=== PATIENT | female | born 1960 | race Caucasian/White ===

== ENCOUNTER 2020-01-13 01:16 | Day surgery (SDC) | payer MEDICARE, MEDICAID, SELFPAY ==
[2020-01-12 15:31] VITALS: BMI 18.6
--- NOTE | 2020-01-13 09:43 | WPDANESEPPF ---
Anes - Initial Pre Proc Eval Procedure: Operation Date: 01/13/20 12:00 Proposed Procedures p Esophagogastroduodenoscopy - Mason Guzman MD Date/Time: 01/13/20 09:43 Surgeon: Mason Guzman MD Pre Op Diagnosis: Dysphagia Patient Data Age: 59 Gender: F Height: 5 ft 7 in Weight: 54 kg Allergies Allergy/AdvReac Type Severity Reaction Status Date / Time No Known Allergies Allergy Verified 01/13/20 11:05 Home Medications Medication Instructions Recorded Confirmed Type ascorbic acid (vitamin C) 500 mg 500 mg PO DAILY 01/12/20 01/13/20 History capsule aspirin [Aspir-81] 81 mg PO DAILY 01/12/20 01/13/20 History atorvastatin 10 mg tablet 10 mg PO DAILY 01/12/20 01/13/20 History ergocalciferol (vitamin D2) 2,500 2,500 unit PO .COMPLEX 01/12/20 01/13/20 History unit capsule escitalopram oxalate 10 mg tablet 10 mg PO DAILY 01/12/20 01/13/20 History levothyroxine 112 mcg tablet 112 mcg PO DAILY #30 tablet 01/12/20 01/13/20 Rx multivitamin with iron-mineral 1 tablet PO DAILY 01/12/20 01/13/20 History ranitidine HCl 300 mg tablet 300 mg PO DAILY 01/12/20 01/13/20 History spironolactone 25 1 tablet PO DAILY #60 tablet 01/12/20 01/13/20 Rx mg-hydrochlorothiazide 25 mg tablet Patient hx anesthesia problems: none Family hx anesthesia problems: none PMFSH Past Medical History Medical History (Updated 01/12/20 @ 15:07 by Mason Guzman MD) Adenomatous colon polyp Arthritis Constipation Dysphagia High cholesterol Hypertension Thyroid disease Weight loss Family History Family History (Updated 01/12/20 @ 14:48 by Rodney Elam) Father Cancer Mother Diabetes mellitus Sibling Diabetes mellitus Social History Social History (Updated 01/12/20 @ 14:47 by Rodney Elma) Smoking status: Current every day smoker Tobacco type: cigarettes Alcohol intake: never Anes - Eval Final PreProcedure Day of Procedure 01/13/20 09:43 Patient weight: normal Heart: regular rate and rhythm Lungs: clear to auscultation Airway: Mallampati scale class II Neurological: alert and oriented Last oral intake: >/= 8 hours ASA classification: III Emergent: no Anesthetic plan: proceed Anesthesia type and monitoring: general GIVS and standard monitoring Informed Consent: The patient's anesthetic plan and its attendant risks and benefits were discussed with the patient/family/POA. Questions were solicited and answers provided to the satisfaction of the patient/family/POA.
[2020-01-13 11:09] VITALS: BP 133/72; PULSE 62; RESP 20; TEMP 36.6; O2SAT 98; BMI 18.6
[2020-01-13] MEDS: LACTATED RINGERS 1,000 ML 150 ML IV CONT (11:22)
--- NOTE | 2020-01-13 12:05 | WPDHPUPDATE1 ---
History and Physical Update Update Date/Time: 01/13/20 12:05 History and Physical has been reviewed, including an updated exam of the patient. There are NO changes in the patient's condition. Risks, benefits, and alternatives have been discussed and questions answered. Patient agrees to proceed with procedure.
[2020-01-13 12:08] VITALS: BP 110/58; BP 117/67; PULSE 61; PULSE 63; RESP 18; RESP 19; O2SAT 100
[2020-01-13 12:18] VITALS: BP 117/67; PULSE 61; RESP 19; O2SAT 100
[2020-01-13 12:28] VITALS: BP 128/65; PULSE 66; RESP 18; O2SAT 100
[2020-01-13 12:38] VITALS: BP 129/72; PULSE 69; RESP 19; O2SAT 100
== END 2020-01-13 12:52 | disposition home or self-care (01) ==
PROVIDERS: PCP Internal Medicine; Visit Provider Internal Medicine Gastroenterology
PROC: 0DJ08ZZ Inspection of Upper Intestinal Tract, Via Natural or Artificial Opening Endoscopic (ICD-10-PCS; CPT 43235; principal; 2020-01-13 12:00)
DX: R13.10 Dysphagia, unspecified (principal); K44.9 Diaphragmatic hernia without obstruction or gangrene; K29.50 Unspecified chronic gastritis without bleeding; R63.4 Abnormal weight loss; I10 Essential (primary) hypertension; E07.9 Disorder of thyroid, unspecified; K59.00 Constipation, unspecified; E78.00 Pure hypercholesterolemia, unspecified; M19.90 Unspecified osteoarthritis, unspecified site; Z79.82 Long term (current) use of aspirin; F17.210 Nicotine dependence, cigarettes, uncomplicated
CPT/HCPCS: 43239; 43248; 88305; J2704; J7120

== ENCOUNTER 2020-05-25 16:46 | Emergency (ER) | payer MEDICARE, MEDICAID, SELFPAY ==
--- NOTE | ~2020-05-25 | CT_ITS ---
EXAMINATION: CT brain wo con INDICATION: Head injury COMPARISON: 02/07/2019 TECHNIQUE: Standard unenhanced head CT. The dose-length product (DLP) was 605.33 mGy-cm. The mA was a djusted according to patient size. Iterative reconstruction technique was employed. FINDINGS: There is a left frontal scalp hematoma. There is no acute intraparenchymal hemorrhage. No e vidence of mass lesion. No evidence of acute infarction. There is mild periventricular and subcortica l hypodensity probably related to small vessel ischemic disease. There is mild prominence of the sulc i and ventricles related to cerebral atrophy. Intracranial calcified cerebral atherosclerosis is note d. There are no extra-axial collections. There is no mass effect or midline shift. The orbits and sof t tissues are unremarkable. The visualized sinuses and mastoid air cells are well aerated. IMPRESSION: 1. Left frontal scalp hematoma without acute intracranial abnormality. 2. Age related findings. Reviewed, dictated and finalized at location A.
--- NOTE | ~2020-05-25 | XR_ITS ---
EXAMINATION: XR knee LT 3V INDICATION: Left knee pain TECHNIQUE: Four views of the left knee are obtained. COMPARISON: 02/07/2019 FINDINGS: There is no fracture, dislocation, or subluxation. There is mild tricompartmental osteoarth ritis characterized by tiny marginal osteophytes. There is no joint effusion. There are stable sclero tic lesions involving the medial femoral condyle and patella. IMPRESSION: 1. No acute osseous abnormality. 2. Chronic sclerotic lesions in the medial femoral condyle and patella which could reflect prior osse ous injury, bone island, or other osseous neoplasm. Bone scan is recommended. Reviewed, dictated and finalized at location A. IMPRESSION: 1. No acute osseous abnormality. 2. Chronic sclerotic lesions in the medial femoral condyle and patella which co uld reflect prior osseous injury, bone island, or other osseous neoplasm. Bone scan is recommended.
--- NOTE | ~2020-05-25 | CT_ITS ---
EXAMINATION: CT cervical spine wo con DATE: 05/25/2020 17:57 INDICATION: Neck pain TECHNIQUE: Computed tomography (CT) of the cervical spine was performed without intravenous contrast. The dose-length product (DLP) was 121.34 mGy-cm. Automated exposure control and iterative reconstruc tion technique were employed. COMPARISON: None FINDINGS: There is no fracture, dislocation, or subluxation. The vertebral body heights and intervert ebral disc spaces are normal. The odontoid is intact. The prevertebral soft tissues are normal. There is mild to moderate multilevel facet osteoarthritis. Incidental note is made of moderate severe oste oarthritis of the temporomandibular joints. IMPRESSION: 1. Mild cervical spondylosis without acute findings. Reviewed, dictated and finalized at location A.
--- NOTE | ~2020-05-25 | XR_ITS ---
EXAMINATION: XR scapula LT INDICATION: Left scapular pain TECHNIQUE: Two views of the left scapula are obtained. COMPARISON: 02/07/2019 FINDINGS: There is no fracture, dislocation, or subluxation. The bones, soft tissues, and joint space s are normal. IMPRESSION: 1. No acute osseous abnormality. Reviewed, dictated and finalized at location A.
--- NOTE | ~2020-05-25 | XR_ITS ---
EXAMINATION: XR elbow LT min 3V DATE: 05/25/2020 17:56 INDICATION: Left elbow pain TECHNIQUE: Anteroposterior, two oblique and lateral views of the left elbow were obtained. COMPARISON: None. FINDINGS: Alignment is normal. No fracture or joint effusion. Joint spaces are normal. Soft tissues a re unremarkable. IMPRESSION: 1. No acute osseous abnormality. Reviewed, dictated and finalized at location A.
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
[2020-05-25 16:58] VITALS: BP 146/74; PULSE 82; RESP 14; TEMP 36.7; O2SAT 100
[2020-05-25 17:09] LABS: Basophils Absolute Auto 0.04 K/mm3 (0.00-0.10); Basophils Percent Auto 0.4 % (0.0-1.0); Eosinophils Absolute Auto 0.12 K/mm3 (0.02-0.50); Eosinophils Percent Auto 1.3 % (1.0-6.0); Hematocrit 37.7 % (35.0-49.0); Hemoglobin 12.3 g/dL (12.0-15.0); Immature Granulocyte Absolute 0.01 K/mm3 (0.00-0.00); Immature Granulocyte Percent A 0.1 % (0.0-0.0); Lymphocytes Absolute Auto 1.95 K/mm3 (1.10-4.50); Lymphocytes Percent Auto 21.8 % (18.0-42.0); Mean Corpuscular HGB Conc 32.6 g/dL (32.0-36.0); Mean Corpuscular Hemoglobin 29.6 pg (27.0-31.0); Mean Corpuscular Volume 90.6 fL (78.0-102.0); Mean Platelet Volume 9.6 fl (9.2-11.8); Monocytes Absolute Auto 0.44 K/mm3 (0.10-0.90); Monocytes Percent Auto 4.9 % (2.0-11.0); Neutrophils Absolute Auto 6.4 K/mm3 (1.7-7.2); Neutrophils Percent Auto 71.5 % (50.0-70.0); Platelet Count Result 290 K/mm3 (150-420); Red Blood Count 4.16 M/mm3 (4.20-5.40); Red Cell Distribution Width 13.3 % (11.6-14.4)
[2020-05-25 17:22] LABS: Prothrombin Time 10.3 Seconds (9.64-11.0)
[2020-05-25 17:24] LABS: Alanine Aminotransferase 12 U/L (14-59); Albumin Level 3.3 g/dL (3.4-5.0); Alkaline Phosphatase 73 U/L (46-116); Anion Gap 10.5 mmol/L (7-16); Aspartate Amino Transferase 11 U/L (15-37); Bilirubin,Total 0.2 mg/dL (0.00-1.00); Blood Urea Nitrogen 25 mg/dL (7-18); Calcium 8.2 mg/dL (8.5-10.1); Carbon Dioxide 29 mmol/L (21-32); Chloride 108 mmol/L (98-108); Estimated CRCL calculation 60 ml/min; Estimated Glomerular Filt Rate > 60; Glucose 100 mg/dL (70-99); Osmolality Calculated 302 mOsm/kg (285-295); Potassium 3.5 mmol/L (3.5-5.1); Sodium 144 mmol/L (136-145); Total Protein 6.1 g/dL (6.4-8.2)
[2020-05-25 18:25] LABS: Add Urine Microscopic? YES; Appearance Urine Clear (Clear); Bilirubin Urine Negative (Negative); Blood Urine Negative (Negative); Color Urine Yellow (Yellow); Glucose Urine UA Negative (Negative); Ketones Urine Negative (Negative); Leukocyte Esterase Ur Negative (Negative); Nitrate Urine Negative (Negative); Protein Urine 1+ (Negative); Specific Grav Ur >= 1.030 (1.010-1.020)
[2020-05-25 18:26] LABS: RBC Urine 0-2 /hpf (0-2); WBC Urine 0-3 /hpf (0-3)
[2020-05-25 18:27] LABS: Bacteria Urine 1+ /hpf; Squamous Epithelial Cell Urine Many /hpf (Few)
[2020-05-25 18:36] VITALS: BP 123/73; PULSE 82; RESP 18; TEMP 36.4; O2SAT 99
== END 2020-05-25 18:43 | disposition home or self-care (01) ==
PROVIDERS: Emergency Provider Emergency Medicine
DX: S09.90XA Unspecified injury of head, initial encounter (principal); S16.1XXA Strain of muscle, fascia and tendon at neck level, initial encounter; T14.8XXA Other injury of unspecified body region, initial encounter; F17.200 Nicotine dependence, unspecified, uncomplicated; Y04.0XXA Assault by unarmed brawl or fight, initial encounter
CPT/HCPCS: 36415; 70450; 72125; 73010; 73080; 73562; 80053; 81001; 85025; 85610; 85730; 99283; 99284; L0150

== ENCOUNTER 2022-06-14 03:03 | Emergency (ER) | payer MEDICARE, MEDICAID, SELFPAY ==
[2022-06-14 03:05] VITALS: BP 110/60; PULSE 78; RESP 20; TEMP 37; O2SAT 95
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
--- NOTE | 2022-06-14 03:27 | PC.NURSE ---
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 TOLERATED WELL. PULSES GOOD POST PROCEDURE
[2022-06-14] MEDS: HYDROcodone/acetaminophen (*CRX) 5-325 MG TABLET 1 TAB PO (03:31)
[2022-06-14 03:42] VITALS: BP 108/70; PULSE 78; RESP 20; TEMP 36.1; O2SAT 95
== END 2022-06-14 03:43 | disposition home or self-care (01) ==
PROVIDERS: Emergency Provider Internal Medicine Critical Care Medicine; PCP Internal Medicine
DX: S61.216A Laceration without foreign body of right little finger without damage to nail, initial encounter (principal); W45.8XXA Other foreign body or object entering through skin, initial encounter
CPT/HCPCS: 12002; 99283; A9270

== ENCOUNTER 2022-10-17 15:06 | Emergency (ER) | payer MEDICARE, MEDICAID, SELFPAY ==
--- NOTE | ~2022-10-17 | CT_ITS ---
EXAMINATION: CT lumbar spine wo con DATE: 10/17/2022 15:40 INDICATION: low back pain . TECHNIQUE: Computed tomography (CT) of the lumbar spine was performed without intravenous contrast. A utomated exposure control and iterative reconstruction technique were employed. The dose-length produ ct was 189.57 mGy-cm. COMPARISON: None. FINDINGS: Left iliac vein stent extending into the inferior IVC. Atherosclerotic arterial calcificati on. Nonobstructing left midpole renal calculus. 5 nonrib-bearing lumbar-type vertebral bodies. Pedicl es intact. Normal vertebral body alignment. Vertebral body heights preserved. Large Schmorl's node in the superior endplate of L4. Multilevel mild disc space narrowing and marginal osteophytosis. 6 mm c entral disc protrusion at L1-2 causing mild central canal stenosis Multilevel mild facet arthropathy. IMPRESSION: No acute fracture or traumatic malalignment in the lumbar spine. Multilevel mild degenerative disc di sease, including a 6 mm central disc protrusion at L1-2. No severe neural foraminal or central canal narrowing. Multilevel mild facet arthropathy. Reviewed, dictated and finalized at location K. [employer] IMPRESSION: No acute fracture or traumatic malalignment in the lumbar spine. Multilevel mil d degenerative disc disease, including a 6 mm central disc protrusion at L1-2. No severe neural foraminal or central canal narrowing. Multilevel mild facet ar thropathy.
--- NOTE | 2022-10-17 15:08 | ED.BACK ---
HPI - Back Pain/Injury General Chief Complaint: Back Pain/Injury Stated Complaint: ambulance Time Seen by Provider: 10/17/22 15:08 Source: patient Mode of arrival: ambulatory Limitations: no limitations History of Present Illness HPI Narrative: [age] old female with a history of hypertension, adenomatous polyps, peripheral vascular disease status post vascular stent, leg ulcer, prolonged QT arthritis presents to the a 2 day history -- low. No radiation of the pain. No fever. No bladder or bowel involvement. No paresthesias of lower extremities. MD elicited complaint: back pain Pertinent past history: prior back pain ( No prior history of low back.) Onset (ago): day(s) ( Two days) Timing: constant Severity: moderate Similar Symptoms Previously: Yes Quality: aching Location: lumbar spine Radiation: none Exacerbating factors: movement Relieving factors: immobilization Context: other ( pain came on after taking laxatives with multiple bathroom visits) Associated symptoms: denies other symptoms Work related injury: No Related Data Home Medications Medication Instructions Recorded Confirmed ascorbic acid (vitamin C) 500 mg 500 mg PO DAILY 01/12/20 10/17/22 capsule aspirin 81 mg tablet,delayed 81 mg PO DAILY 01/12/20 10/17/22 release (Aspir-) atorvastatin 10 mg tablet 10 mg PO DAILY 01/12/20 10/17/22 ergocalciferol (vitamin D2) 62.5 2,500 unit PO .COMPLEX 01/12/20 10/17/22 mcg (2,500 unit) capsule escitalopram oxalate 10 mg tablet 10 mg PO DAILY 01/12/20 10/17/22 multivitamin with iron-mineral 1 tablet PO DAILY 01/12/20 10/17/22 ranitidine HCl 300 mg tablet 300 mg PO DAILY 01/12/20 10/17/22 levothyroxine 112 mcg tablet 100 mcg PO DAILY 05/25/20 10/17/22 Allergies Allergy/AdvReac Type Severity Reaction Status Date / Time No Known Allergies Allergy Verified 10/17/22 15:14 Review of Systems Review of Systems: All systems reviewed & are unremarkable except as noted in HPI and below Constitutional: Constitutional: Reports as per HPI and Reports no additional constitutional complaints Eyes: Eyes: Reports as per HPI and Reports no additional eye complaints ENT: Reports system reviewed and no additional complaints, except as documented and Reports as per HPI Cardiovascular: Cardiovascular: Reports as per HPI Respiratory: Respiratory: Reports as per HPI and Reports no additional respiratory complaints Gastrointestinal: Gastrointestinal: Reports as per HPI and Reports no additional gastrointestinal complaints Genitourinary: Genitourinary: Reports no additional female genitourinary complaints and Reports as per HPI Musculoskeletal: Musculoskeletal: Reports no additional musculoskeletal complaints, Reports as per HPI and Reports back pain Integumentary/Breasts: Skin/Breast: Reports system reviewed and no additional complaints, except as docu and Reports as per HPI Neurologic: Reports system reviewed and no additional complaints, except as documented and Reports as per HPI Psychiatric: Psychiatric: Reports no additional psychiatric complaints and Reports as per HPI Endocrine: Endocrine: Reports no additional endocrine complaints and Reports as per HPI Hematologic/Lymphatic: Hematologic/Lymphatic: Reports no additional hematologic/lymphatic complaints and Reports as per HPI Allergic/Immunologic: Allergic/Immunologic: Reports no additional allergic/immunologic complaints and Reports as per HPI PMFSH Past Medical History Medical History (Updated 10/17/22 @ 16:34 by Viktor Saavedra MD) Adenomatous colon polyp Arthritis Constipation Dysphagia High cholesterol Hypertension Leg ulcer, left Peripheral artery disease Prolonged QT interval Thyroid disease Weight loss Surgical History Surgical History History of S/P peripheral artery angioplasty with stent placement left iliac times due Family History Family History (Reviewed
[2022-10-17 15:10] VITALS: BP 118/64; PULSE 67; RESP 22; TEMP 36.3; O2SAT 100
[2022-10-17] MEDS: KETOROLAC 30 MG/ML VIAL (*BKC) IV PUSH (15:26)
--- NOTE | 2022-10-17 15:26 | PC.NURSE ---
pt in ct at this time
[2022-10-17 16:06] VITALS: BP 116/60; PULSE 62; RESP 16; O2SAT 100
== END 2022-10-17 16:47 | disposition home or self-care (01) ==
PROVIDERS: Emergency Provider Internal Medicine Critical Care Medicine; PCP Internal Medicine
DX: M51.36 Other intervertebral disc degeneration, lumbar region (principal); M51.26 Other intervertebral disc displacement, lumbar region; E78.00 Pure hypercholesterolemia, unspecified; F17.200 Nicotine dependence, unspecified, uncomplicated
CPT/HCPCS: 72131; 96374; 99284; J1885

== ENCOUNTER 2023-04-10 13:12 | Outpatient (CLI) | payer MEDICARE, MEDICAID, SELFPAY ==
--- NOTE | ~2023-04-10 | DEXA_ITS ---
Bone Density Report Name: BLANCA BARNES Age: 62 Sex: Female Ethnicity: White Date of : 1960 Indication: hyperparathyroidism; history of glucocorticoids; prior fracture; hysterectomy; rheumatoid arthritis; Referring Provider: AKNAKSHA, BENJI Crawford Study: Bone densitometry was performed. Exam Date: April 10, 2023 Accession number: [id number] Bone Density: Region BMD T-score Z-score Classification AP Spine(L1-L4) 0.815 -2.1 -0.5 Osteopenia Femoral Neck (Left) 0.467 -3.4 -2.0 Osteoporosis Total Hip (Left) 0.584 -2.9 -1.8 Osteoporosis Femoral Neck (Right) 0.519 -3.0 -1.6 Osteoporosis Total Hip (Right) 0.600 -2.8 -1.7 Osteoporosis Femoral Neck Mean 0.493 -3.2 -1.8 Osteoporosis Total Hip Mean 0.592 -2.9 -1.8 Osteoporosis World Health Organization criteria for BMD impression classify patients as: Normal (T-score at or above -1.0), Osteopenia (T-score between -1.0 and -2.5), or Osteoporosis (T-score at or below -2.5). 10-year Fracture Risk: FRAX not reported because: Some T-score for Spine Total or Hip Total or Femoral Neck at or below -2.5 Clinical Information Provided by Patient: Has had a low trauma fracture Smokes Has taken Glucocorticoids Has rheumatoid arthritis Has used the following medications: Calcium Has the following medical conditions: Hyperparathyroidism, Hysterectomy Patient maximum height was 57 Menopause Age: 45 No regular weight bearing exercise Does not regularly consume dairy products Drinks caffeinated beverages Onset of menses at age 13 Number of children 4 Impression: The patient has established osteoporosis, based on the Left Femoral Neck T-score and the existence of a prior fracture. The patient has risk factors, including: smoking, previous fracture, history of glucocorticoid therapy. Discussion: HIGH RISK OF FRACTURE. BONE DENSITY IS UNDESIRABLY LOW AT ONE OR MORE SKELETAL SITES, CONSISTENT WITH POSTMENOPAUSAL OSTEOPOROSIS. This patient's lowest T-score, in a patient who has previously fractured, meets the World Health Organization's (WHO) criteria for severe osteoporosis. In untreated patients, the risk of osteoporotic fracture increases approximately two-fold for each 1.0 SD decrease in T-score. Low bone density is not the only risk factor for fracture; also consider factors such as patient's age, frailty or poor health, risk of falling, risk of injury, previous osteoporotic fracture, family history of osteoporosis, cigarette smoking, low body weight, etc. Not everyone with low bone mineral density has osteoporosis; osteomalacia and other metabolic bone disorders should also be considered. Patients who have osteoporosis should be evaluated for specific diseases and conditions (secondary causes) that may cause or contribute to bone loss. The [employer] Association of Clinical Endocrinologists (AACE) and National Osteoporosis Foundation (NOF
--- NOTE | ~2023-04-10 | CT_ITS ---
EXAMINATION: CT lung screening DATE: 04/10/2023 14:07 INDICATION: CURRENT SMOKER 30+ YR; REVIEW OF LUNG STATUS; NICOTINE DEP TECHNIQUE: Computed tomography (CT) of the chest was performed without intravenous contrast. Addition al 3D reconstructions utilizing coronal maximum intensity projection (MIP) were performed. Automated exposure control and iterative reconstruction technique were employed. The dose-length product was 53 .75 mGy-cm. COMPARISON: None FINDINGS: Mild pleural parenchymal scarring at the bilateral apices with a 5 mm and 6-7 mm more nodular opaciti es at the right apex. There are a few additional scattered 2-3 mm nodules throughout the remainder of the bilateral lungs. No pneumonia, pulmonary edema, pleural effusion or pneumothorax. Heart size is normal. No pericardial effusion. Thoracic aorta is normal in caliber. No pathologically enlarged thor acic lymphadenopathy. 5 mm nonobstructing stone at an upper pole calyx of the left kidney. IMPRESSION: 1. Lung-RADS category 3: Probably benign. Further evaluation is recommended with noncontrast low-dose chest CT in 6 months. Reviewed, dictated and finalized at location A. IMPRESSION: 1. Lung-RADS category 3: Probably benign. Further evaluation is recommended wit h noncontrast low-dose chest CT in 6 months.
--- NOTE | ~2023-04-10 | MM_ITS ---
EXAMINATION: MM screening [facility] BI w yuri HISTORY: Screening mammogram TECHNIQUE: Craniocaudal and mediolateral oblique 3-D tomosynthesis images were obtained and synthetic 2-D images were generated. CAD analysis was submitted and interpreted. COMPARISON: 05/22/2017, 04/09/2016, 03/07/2015 BREAST PARENCHYMAL COMPOSITION: There are scattered areas of fibroglandular density. FINDINGS: No suspicious mass, calcification, or architectural distortion are identified in either davin ast to suggest malignancy. There has been no suspicious interval change. IMPRESSION: 1. No mammographic evidence of malignancy. 2. Recommend routine screening mammography in one year. BI-RADS Category 1: Negative Reviewed, dictated and finalized at location A.
== END 2023-04-10 13:13 | disposition home or self-care (01) ==
LOC: CHSIMG 13:17
PROVIDERS: PCP Family Medicine; Visit Provider Family Medicine
DX: Z12.31 Encounter for screening mammogram for malignant neoplasm of breast (principal); Z78.0 Asymptomatic menopausal state; M85.88 Other specified disorders of bone density and structure, other site; M81.0 Age-related osteoporosis without current pathological fracture; Z12.2 Encounter for screening for malignant neoplasm of respiratory organs; Z87.891 Personal history of nicotine dependence
CPT/HCPCS: 71271; 77063; 77067; 77080

== ENCOUNTER 2024-01-31 15:33 | Outpatient (CLI) | payer MEDICARE, MEDICAID, SELFPAY ==
--- NOTE | ~2024-01-31 | US_ITS ---
EXAMINATION: US venous doppler [facility] DATE: 01/31/2024 16:08 INDICATION: Left lower limb pain TECHNIQUE: Muhammad scale images without and with compression and Doppler images of the left lower extrem ity veins were obtained. COMPARISON: None FINDINGS: The left common femoral vein, profunda femoral vein, femoral vein, popliteal vein, peroneal trunk, posterior tibial veins, and greater saphenous vein are patent. IMPRESSION: 1. Patent left lower extremity veins. No evidence of deep venous thrombosis. Reviewed, dictated and finalized at location B. [employer]
== END 2024-01-31 15:34 | disposition home or self-care (01) ==
DX: M79.89 Other specified soft tissue disorders (principal)
CPT/HCPCS: 93971

== ENCOUNTER 2024-09-09 11:12 | Outpatient (CLI) | payer MEDICARE, MEDICAID, SELFPAY ==
[2024-09-09 11:59] LABS: Alanine Aminotransferase 12 U/L (6-35); Albumin Level 4.6 g/dL (3.5-5.1); Alkaline Phosphatase 74 U/L (38-126); Anion Gap 6 mmol/L (4-12); Aspartate Amino Transferase 22 U/L (14-36); Bilirubin,Total 0.5 mg/dL (0.2-1.3); Blood Urea Nitrogen 17 mg/dL (7-17); Calcium 9.5 mg/dL (8.4-10.2); Carbon Dioxide 31 mmol/L (22-30); Chloride 103 mmol/L (98-107); Cholesterol 213 mg/dL (0-200); Estimated Glomerular Filt Rate > 60; Glucose 111 mg/dL (65-110); HDL Direct 51 mg/dL; Potassium 3.8 mmol/L (3.4-5.0); Sodium 140 mmol/L (137-145); Triglycerides 240 mg/dL (<150)
[2024-09-09 12:10] LABS: LDL Cholesterol Direct 103 mg/dL
[2024-09-09 12:32] LABS: Free T4 Free Thyroxine 1.11 ng/mL (0.78-2.19); Vitamin D 25 Hydroxy 75.7 ng/mL
== END 2024-09-09 11:13 | disposition home or self-care (01) ==
PROVIDERS: PCP Internal Medicine; Visit Provider Internal Medicine
DX: E03.9 Hypothyroidism, unspecified (principal); E78.5 Hyperlipidemia, unspecified; Z79.891 Long term (current) use of opiate analgesic
CPT/HCPCS: 36415; 80053; 80061; 82306; 84439; 84443; 84481

== ENCOUNTER 2024-09-17 15:58 | Outpatient (CLI) | payer MEDICARE, MEDICAID, SELFPAY ==
[2024-09-17 18:02] LABS: Hemoglobin A1C 6.2 % (<5.7)
== END 2024-09-17 15:59 | disposition home or self-care (01) ==
PROVIDERS: PCP Internal Medicine; Visit Provider Internal Medicine
DX: R73.09 Other abnormal glucose (principal)
CPT/HCPCS: 36415; 83036

== ENCOUNTER 2025-01-05 12:56 | Outpatient (CLI) | payer MEDICARE, MEDICAID, SELFPAY ==
--- NOTE | ~2025-01-05 | MM_ITS ---
EXAMINATION: MM screening yohannes BI w yuri HISTORY: Screening TECHNIQUE: Craniocaudal and mediolateral oblique 3-D tomosynthesis images were obtained and synthetic 2-D images were generated. CAD analysis was submitted and interpreted. COMPARISON: Comparison to multiple prior studies sequentially, with oldest reviewed study dated 03/07. BREAST PARENCHYMAL COMPOSITION: Not dense: There are scattered areas of fibroglandular density. FINDINGS: There is no evidence of suspicious mass, calcification, or architectural distortion to sugg est malignancy in either breast. There has been no suspicious interval change. IMPRESSION: 1. No mammographic evidence of malignancy. 2. Recommend routine screening mammography in one year. BI-RADS Category 1: Negative Reviewed, dictated and finalized at location B. D WELFARE CONSULTANT
--- NOTE | ~2025-01-05 | DEXA_ITS ---
Bone Density Report Name: BLANCA BARNES Age: 64 Sex: Female Ethnicity: White Date of : 1960 Indication: postmenopausal osteoporosis; monitoring treatment; hyperparathyroidism; height loss; inflammatory bowel disease; prior fracture; hysterectomy; rheumatoid arthritis; Referring Provider: AMY, JESÚS Archuleta Study: Bone densitometry was performed. Exam Date: January 05, 2025 Accession number: [id number] Bone Density: Region BMD T-score Z-score Classification AP Spine(L1-L4) 0.900 -1.3 0.4 Osteopenia Femoral Neck (Left) 0.538 -2.8 -1.3 Osteoporosis Total Hip (Left) 0.649 -2.4 -1.2 Osteopenia Femoral Neck (Right) 0.558 -2.6 -1.2 Osteoporosis Total Hip (Right) 0.624 -2.6 -1.4 Osteoporosis Femoral Neck Mean 0.548 -2.7 -1.2 Osteoporosis Total Hip Mean 0.636 -2.5 -1.3 Osteoporosis World Health Organization criteria for BMD impression classify patients as: Normal (T-score at or above -1.0), Osteopenia (T-score between -1.0 and -2.5), or Osteoporosis (T-score at or below -2.5). 10-year Fracture Risk: FRAX not reported because: Some T-score for Spine Total or Hip Total or Femoral Neck at or below -2.5 Treated for osteoporosis Previous Exams: Region Exam Age BMD T-score BMD Change BMD Change Date g/cm2 vs Baseline vs Previous AP Spine (L1-L4) 01/05/2025 64 0.900 -1.3 0.085 (10.5%)* 0.085 (10.5%)* 04/10/2023 62 0.815 -2.1 Total Hip(Left) 01/05/2025 64 0.649 -2.4 0.064 (11.0%)* 0.064 (11.0%)* 04/10/2023 62 0.584 -2.9 Total Hip(Right) 01/05/2025 64 0.624 -2.6 0.024 (4.0%) 0.024 (4.0%) 04/10/2023 62 0.600 -2.8 *Denotes significance at 95% confidence level, LSC for AP Spine = 0.022 g/cm2, LSC for Total Hip = 0.027 g/cm2 Clinical Information Provided by Patient: Has had a low trauma fracture Smokes Has rheumatoid arthritis Is being treated for osteoporosis Has used the following medications: Vitamin D, Calcium, multi Has the following medical conditions: Inflammatory bowel diseases, Hyperparathyroidism, Hysterectomy Patient maximum height was 67. Menopause Age: 45 Does not regularly consume dairy products Drinks caffeinated beverages Onset of menses at age 13 Number of children 3 Impression: The patient has established osteoporosis, based on the Left Femoral Neck T-score and the existence of a prior fracture. The patient has risk factors, including: smoking, previous fracture. No significant bone loss was observed. Discussion: PATIENT UNDER TREATMENT WITH NO SIGNIFICANT BMD LOSS SINCE LAST EXAM. In an untreated patient, BMD typically declines with age. A lack of decline or gain is usually a sign that treatment is efficacious and fracture risk is reduced. It is important to ask patients whether they are taking their medications and to encourage continued and appropriate compliance with their osteoporosis therapies to reduce fracture risk. It is also important to review their risk factors and encourage appropriate calcium and vitamin D intakes, exercise, fall prevention and other lifestyle measures. Follow-Up: Consider a repeat BMD and Vertebral Fracture Assessment (VFA) exam in 2 years or sooner if medically necessary, to reassess this patient's status. Reported by: ANNA MARIE on 01/05/2025 1:33:00 PM. Reviewed, dictated and finalized at location A.
--- NOTE | ~2025-01-05 | CT_ITS ---
EXAMINATION:CT lung screening DATE: 01/05/2025 13:37 INDICATION: Tobacco use. TECHNIQUE: Computed tomography (CT) of the chest was performed without intravenous contrast. Automate d exposure control and iterative reconstruction technique were employed. The dose-length product (DLP ) was 65.11 mGy-cm. COMPARISON: Chest CT 04/10/2023 FINDINGS: There is mild scarring at the lung apices. There are few stable nodules in right upper lobe measuring up to 6 mm. No pleural effusion. The heart size is normal. No pericardial effusion. There is severe thoracic spondylosis. There is mild chronic anterior wedging of multiple vertebral bodies. IMPRESSION: 1. Lung-RADS category 2: Benign appearance or behavior. Continue annual screening with noncontrast lo w-dose chest CT in 12 months. Reviewed, dictated and finalized at location A. CHASER IMPRESSION: 1. Lung-RADS category 2: Benign appearance or behavior. Continue annual screeni ng with noncontrast low-dose chest CT in 12 months.
--- OUTSIDE RECORDS SUMMARY | 2025-01-05 13:44 | XMS_ITS | Data Portability ---
Author Organization 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 Plan of Treatment Reminders Order Date Submit Date Provider Last Modified By Organization Details Last Modified Time Details Appointments Medicare Wellness 15 2024 10:00A M Jon Mcmillan MD Not available Not available Not available Lab vitamin D, 25-hydrox y, total, serum [address] (Lab), [address] [place], [address], 09/16/2024 08:00:32 lipid panel, serum [address] (Lab), [address] [place], [address], 09/16/2024 08:00:32 CMP, serum or plasma [address] [facility] (Lab), [address] [place], [address], 09/09/2024 15:57:10 TSH, serum or plasma [address] (Lab), [address] [place], [address], 09/16/2024 08:00:31 T4, free, serum [address] (Lab), [address] [place], [address], 09/16/2024 08:00:32 T3, free, serum or plasma 2023 [facility] (Lab), [address] [facility] [place], [address], 09/11/2024 15:36:24 Referral None recorded. Procedures upper endoscopy procedure (EGD) (PROC) 2023 [facility], [address], [address], [address], 12/25/2024 04:16:51 colonosco py procedure (PROC) - Please call patient to schedule. 2023 [facility], [address], [address], [address], 01/01/2025 04:16:01 upper endoscopy procedure (EGD) (PROC) [address] Gastroenter[facility], [address], [address], [address], 10/05/2024 15:14:34 Surgeries None recorded. Imaging MAMMO, screening , digital, bilateral - Please call patient to schedule. [address], [address] [facility], [place], [address], 10/06/2024 10:04:24 LDCT, chest, for lung cancer screening - Please call patient to schedule. [address], [address] [facility], [place], [address], 10/06/2024 10:04:20 bone density - Please call patient to schedule. [address], [address] [place] [address], [address], 10/06/2024 10:03:47 Medication Orders meloxicam 15 mg tablet 2023 024 [facility] #[id number], [address], [place], [address], 10/05/2024 12:30:35 Patient TargetsNo targets recorded. Patient InstructionsNo instructions recorded. Reason for Referral None Reported. Results Created Date Observation Date Name Description Value Unit Range Abnormal Flag Note LastModifiedBy Organization Detail LastModifiedTime Result Notes None recorded. Problems Name Problem SNOMED Code Status Onset Date Resolution Date Notes Provider Name and Address Organization Details Recorded Time Hypothyroid ism 00516102 Active 2023 Stephanie victoria RMA null, [place] [facility] 4 12:13:26 Hyperlipide sean 17688884 Active 2023 Stephanie victoria RMA null, [place] - [place] [facility] 4 12:13:23 Osteoporosi s 49882341 Active 2023 Stephanie Stthomas an, RMA null, [place] - [facility] 4 12:13:35 Polyp of colon 69134459 Active 2023 Stephanie Stthomas an, RMA null, [place] [facility] 4 12:14:17 Gastroesoph ageal reflux disease 006403480 Active 2023 Stephanie De La Torre an RMA null, [place] - [facility] 4 12:13:29 Venous stasis ulcer with edema of right lower leg 0161594937413 9106 Active 2023 Stephanie Stthomas victoria RMA null, [place] - [facility] 4 12:14:23 Venous stasis ulcer with edema of left lower leg 2535765395025 9101 Active 2023 Stephanie Stthomas victoria RMA null, [place] [facility] 4 12:14:20 Osteoarthri tis 463705027 Active 2023 Stephanie victoria RMA null, [place] - [facility] 4 12:13:28 Edema of lower extremity 688016928 Active 2023 Stephanie victoria RMA null[place] [facility] 4 12:14:08 Smoker 65854649 Active 2023 SOTO GoreA null[place] [facility] 4 12:13:41 Dysphagia 88902595 Active 2023 Stephanie victoria RMA null, [place] [facility] 4 12:13:21 Peripheral vascular disease 114335862 Active 2023 Stephanie victoria RMA null[place] [facility] 4 12:13:39 Anxiety 31054366 Active 2023 Stephanie victoria RMA null, [place] [facility] 4 12:13:18 Hyperglycem ia 85755767 Active 2023 Jon Mcmillan MD [address], [place], [address], [facility] 4 08:41:42 Blood glucose outside reference range 856229371 Active 2023 SOTO GoreA null, [place] - [facility] 4 12:14:11 Multiple joint pain 04568829 Active 2023 Jon Mcmillan MD [address], [address], [place], [address], [facility] 4 12:29:37 Problem Notes None recorded. Procedures Surgical History Date Name Laterality Status Provider Name and Address Organization Details Recorded Time section completed ARTHUR Barbosa [place] - [facility] 09/02/2024 12:06:13 Partial hysterectomy completed ARTHUR Barbosa [place] [facility] 09/02/2024 12:07:05 Orthopedic Surgery completed Stephanie Arroyo Vipin [facility] 09/02/2024 12:07:26 Carpal tunnel surgery completed Stephanie Arroyo [facility] 09/02/2024 12:07:44 thyroidectomy completed Stephanie Arroyo [facility] 09/02/2024 12:07:54 miscarriage care management completed Stephanie Arroyo [facility] 09/02/2024 12:08:41 Cardiac Stent Placement completed Stephanie Arroyo [facility] 09/02/2024 12:09:03 Imaging Results None recorded. Procedure Notes None recorded. Medical Equipment None Reported. Allergies No known drug allergies Medications Name Sig Start Date Stop Date Status Note LastModified by Organization Details LastModified Time gabapentin 600 mg tablet Take 1 tablet 3 times a day by oral route. 2023 active Not Available Not Available Not Avai lable atorvastatin 10 mg tablet Take 1 tablet every day by oral route. 2023 active Not Available Not Available Not Avai lable meloxicam 15 mg tablet Take 1 tablet every day by oral route as needed for 90 days. 2023 active CHRISTIANE 10/05SEP 27 ok to rf Not Available Not Available Not Available spironolactone 25 mg-hydrochlorot hiazide 25 mg tablet Take 1 tablet every day by oral route. 2023 active Not Available Not Available Not Avai lable alendronate 70 mg tablet Take 1 tablet every week by oral route. 2023 active CHRISTIANE 10/05SEP 27 ok to rf Not Available Not Available Not Available aspirin 81 mg tablet,delayed release Take 1 tablet every day by oral route. active Not Available Not Available No t Available levothyroxine 75 mcg tablet Take 1 tablet every day by oral route. 2023 active Not Available Not Available Not Avai lable omeprazole 20 mg capsule,delayed release Take 1 capsule every day by oral route. 2023 active Not Available Not Available Not Avai lable hydroxyzine HCl 25 mg tablet Take 1 tablet 3 times a day by oral route as needed. 2023 active CHRISTIANE 10/05 NOV ok to rf Not Available Not Available Not Available Vitals Date Recorded Body weight Body mass index (BMI) Body height Body temperature Heart rate Oxygen saturation Oxygen saturation in Arterial blood by Pulse oximetry Systolic blood pressure Diastolic blood pressure Provider Name and Address Organization Details Last Updated DateTime 4 42845.2 6 g 23.3 kg/m2 170.18 cm 97.3 [degF] 65 /min 98 % 98 % 130 mm[Hg] 74 mm[Hg] Stephanie victoria [facility] 4 11:59:18 Date Recorded Body height Body mass index (BMI) Body weight Body temperature Heart rate Oxygen saturation Oxygen saturation in Arterial blood by Pulse oximetry Systolic blood pressure Diastolic blood pressure Provider Name and Address Organization Details Last Updated DateTime 4 170.18 cm 23.6 kg/m2 59190.4 5 g 97.3 [degF] 72 /min 99 % 99 % 134 mm[Hg] 70 mm[Hg] Stephanie victoria [facility] 4 12:11:15 Social History Question Answer Notes LastModified by Organizat ion Details LastModified Time Tobacco Smoking Status Current Every Day Smoker ARTHUR Barbosa [facility] 09/02/2024 12:04:07 Do You Have An Advance Directive? No Information not available 09/02/2024 What Is Your Level Of Alcohol Consumption? None Information not available 09/02/2024 Is Blood Transfusion Acceptable In An Emergency? Yes Information not available 09/02/2024 What Is Your Level Of Caffeine Consumption? Moderate Information not available 09/02/2024 Are You Currently Employed? No Disability Information not available 09/02/2024 What Type Of Diet Are You Following? REGULAR Information not available 09/02/2024 What Is The Highest Grade Or Level Of School You Have Completed Or The Highest Degree You Have Received? [id number] Information not available 09/02/2024 Have There Been Any Changes To Your Family Or Social Situation? No Information not available 09/02/2024 Do You Use Insect Repellent Routinely? Yes Information not available 09/02/2024 Where Do You Live? Other [place] Information not available 09/02/2024 What Was The Date Of Your Most Recent Tobacco Screening? 09/02/2024 Information not available 09/02/2024 Do You Have Any Pets? Yes Information not available 09/02/2024 What Is Your Relationship Status? Information not available 09/02/2024 Do You Use Your Seat Belt Or Car Seat Routinely? Yes Information not available 09/02/2024 Do You Have Smoke And Carbon Monoxide Detectors In Your Home? Yes Information not available 09/02/2024 At What Age Did You Start Smoking Tobacco? 24 Information not available 09/02/2024 Are You Passively Exposed To Smoke? Yes Information not available 09/02/2024 Are There Any Smokers In Your House? No Information not available 09/02/2024 How Much Tobacco Do You Smoke? 0.5 PPD Information not available 09/02/2024 Do You Feel Stressed (tense, Restless, Nervous, Or Anxious, Or Unable To Sleep At Night)? [id number] Information not available 09/02/2024 Do You Use Any Illicit Or Recreational Drugs? Yes TCH- GUMMIBAKARI In The AM For Her Arthritis Information not available 09/02/2024 Do You Use Sunscreen Routinely? No Information not available 09/02/2024 Have You Recently Traveled Abroad? No Information not available 09/02/2024 Do You Or Have You Ever Used Any Other Forms Of Tobacco Or Nicotine? No Information not available 09/02/2024 Sex: Female Functional Status Question Answer Note LastModified by Organizat ion Details LastModified Time What is your exercise level? Occasional Information not available 09/02/2024 Mental Status None recorded. Family History Relationship Description Onset Age of this Age Resolved Age Notes LastModified by Organization Details LastModified Time Mother Essential hypertension Not available 09/02/2024 12:01:05 Mother Diabetes mellitus Not available 12:01:43 Paternal Grandmother Essential hypertension Not available 09/02/2024 12:01:06 Maternal Grandmother Diabetes mellitus Not available 12:01:43 Brother Diabetes mellitus Not available 12:01:43 Brother Diabetes mellitus Not available 12:01:43 Sister Disorder of thyroid gland Not available 12:01:59 Father Family history of malignant neoplasm Not available 12:02:33 Medical History No medical history recorded. Gynecological HistoryNo gynecological history recorded. Obstetrics History GPAL:G 0 P 0 0 0 0 Past Encounters Encounter ID Performer Location Encounter Start Date Encounter Closed Date Diagnosis/Indication Diagnosis SNOMED-CT Code Diagnosis ICD10 Code Diagnosis Note [id number] Jon Mcmillan MD [facility] [address] [facility] [place] [address] 09/02/2024 11:51:25 09/02/2024 12:53:48 Adult health examination 615059328 Z00.00 Colonoscop y- 5 yrs ago- had 13 polyps 4 yrs ago had 3 polyps, dueMammogr am- 2022DEXA- NEVERPneum ovax- NEVERFLU- NEVERCOVID - DOES NOT WANT Hypothyroidism 03656824 E03.9 Hyperlipidemia 11786690 E78.5 Gastroesop hageal reflux disease 992442134 K21.9 MEDS HELP Osteoporosis 63684403 M8 1.0 needs dexa, to take caltrate Polyp of colon 37698327 K63.5 Venous sta sis ulcer with edema of left lower leg 4215397886 0965317 L97.929 Smoker 95512209 F17.200 advise dto quit Osteoarthritis 221842901 M19.90 meds help Edema of l ower extremity 867650319 R60.0 on meds and better Long-term drug therapy 186535824 Z79.891 Screening mammography 24 285672 Z12.31 Postmenopausal state 764 67481 Z78.0 Dysphagia 66328609 R13.1 0 Peripheral vascular disease 890845582 I73.9 no symptoms Anxiety 56923834 F41.9 meds help [id number] Jon Mcmillan MD [facility] [address] [place] [address] 10/05/2024 11:56:48 10/05/2024 12:34:36 Adult health examination 472198806 Z00.00 Colonoscop y- 5 yrs ago- had 13 polyps 4 yrs ago had 3 polyps, dueMammogr am- 2DEXA- NEVERPneum ovax- NEVERFLU- NEVERCOVID - DOES NOT WANT Hypothyroidism 78141853 E03.9 stable Hyperlipidemia 40021991 E78.5 stable Gastroesop hageal reflux disease 460424228 K21.9 MEDS HELP Osteoporosis 21638672 M8 1.0 needs dexa, to take caltratede xa orrdered Venous sta sis ulcer with edema of left lower leg 7050741978 8646042 L97.929 Smoker 84817358 F17.200 advised to quit, LDCT was ordered Osteoarthritis 630145491 M19.90 meds help Edema of l ower extremity 263790067 R60.0 on meds and better Dysphagia 67500699 R13.1 0 Peripheral vascular disease 914852750 I73.9 no symptoms Anxiety 12706118 F41.9 meds help Health Concerns Section Related Observation LastModified by Organization Detai ls LastModified Time None Recorded Concern Status LastModified by Organization Details LastModified Time None Recorded Advance Directives Directive N: Payers Encounter Date Sequence Insurance Name Policy Number Policy Jett Covered Member ID Jett Member ID Guarantor Name 09/02/2024 1 [facility] (MEDICARE REPLACEMENT/A DVANTAGE - PPO) [id number] Janette Montero [id number] Janette Montero 09/02/2024 2 [place] Janette Montero [id number] Janette Montero 10/05/2024 1 [facility] (MEDICARE REPLACEMENT/A DVANTAGE - PPO) [id number] Janette Montero [id number] Janette Montero 10/05/2024 2 [place] [facility] [place] [facility] Janette Montero [id number] Janette Montero Notes Date Note Type Note Provider Name and Address Organization Details Recorded Time 09/02/2024 text/html Pt is a 63 y/o h ere today to establish care Has trouble with BM, Has Colonoscopy freq. due to polyps Hypothyroidism- On meds. Had thyroid removed in 2013 due to GoiterMeds- Levothyroxine .75mcg daily Hyperlipidemia- On meds, labs dueMeds- Atorvastatin 10mg daily GERD- Meds helpMeds- Omeprazole 20mg daily Edema- In both legs, betterMeds- Spironolactone 25mg daily Dysphagia- had EGD and stretching done 5 yrs ago, symptoms getting worse Osteoporosis - On meds, dexa due, to take caltrateMeds- Alendronate 100mg weekly Arthritis - Takes Gabapentin and helps for pain all overMeds- Gabapentin 600mg TID Smoker- smokes 1/2 PPD for 40 yrs, never had LDCT Venous stasis ulcer - Left leg. [facility]. Has almost healed PVD- s/p stents in left leg, on asa, symptoms better since got stents Anxiety- meds helpMeds- hydroxyzine 25 mg tid Jon Mcmillan MD [address] [facility], [facility] [address], [place], [address], [facility] [employer] [facility] [place] [facility] 09/02/2024 14:27:35 10/05/2024 text/html Pt is here today for a 1 month follow upAt last OV labs, and imaging were ordered and she states that she has not heard from anyone other than the GI Dr. She will call them soon to try and scheduledC/o Right upper back pain X 4 daysAlso c/o hand pain, right hand worse, getting to where its hard for her to open things. Colonoscopy is scheduled for 12/15/24Has trouble with BM, Has Colonoscopy freq. due to polyps Hypothyroidism- On meds. Had thyroid removed in 2013 due to Goiter, TSH was nl 09/17Meds- Levothyroxine .75mcg daily Hyperlipidemia- On meds, labs good 09/17Meds- Atorvastatin 10mg daily GERD- Meds helpMeds- Omeprazole 20mg daily Edema- In both legs, betterMeds- Spironolactone 25mg daily Dysphagia- had EGD and stretching done 5 yrs ago, symptoms getting worse Osteoporosis - On meds, dexa due, to take caltrateMeds- Alendronate 100mg weekly Arthritis - Takes Gabapentin and helps for pain all overMeds- Gabapentin 600mg TID Smoker- smokes 1/2 PPD for 40 yrs, never had LDCT Venous stasis ulcer - Left leg. [facility] [place]. Has almost healed PVD- s/p stents in left leg, on asa, symptoms better since got stents Anxiety- meds helpMeds- hydroxyzine 25 mg tid Hyperglycemia- was 111, has staretd watching diet Jon Mcmillan MD [address] [facility], [facility] [address], [place], [address], [place] [facility] 10/05/2024 12:32:59 OBGyn Episode No OBEpisode recorded.
--- OUTSIDE RECORDS SUMMARY | 2025-01-05 13:45 | XMS_ITS | Clinical Summary ---
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 Active OMEGA-3 FATTY ACIDS-FISH OIL ORAL Take by mouth daily. Active aspirin (ECOTRIN EC) 81 mg Tablet, Delayed Release (E.C.) Take 81 mg by mouth daily. Active atorvastatin (LIPITOR) 10 mg tablet Take 10 mg by mouth daily. Active spironolactone- hydroCHLOROthia zide (ALDACTAZIDE) 25-25 mg Tablet Take 1 Tablet by mouth daily. Active alendronate (FOSAMAX) 10 mg tablet Take 10 mg by mouth daily. empty stomach beofore other meds,with full glass of water, stay upright 30 min Active hydrOXYzine HCL (ATARAX) 25 mg tablet Take 25 mg by mouth 3 times daily as needed for Itching. Active omeprazole (PriLOSEC) 20 mg Capsule, Delayed Release(E.C.) Take 20 mg by mouth daily. Active escitalopram oxalate (LEXAPRO) 10 mg tablet Take 10 mg by mouth daily. Active levothyroxine 75 mcg tablet Take 75 mcg by mouth daily in the morning. Active collagenase (SANTYL) 250 unit/gram Ointment Apply to affected area daily. Use a thin layer on each wound. 30 Gram 2 06/16/2024 10:28 AM CDT 06/16/2024 Active triamcinolone acetonide (KENALOG) 0.1 % Ointment Apply to affected area 2 times daily. 80 Gram 1 06/16/2024 10:28 AM CDT 06/16/2024 Active Active Problems No known active problems Encounters Date Type Department Care Team Description 12/17/2024 External Device Data [facility] ABSTRACTION Provider, Abstract 12/16/2024 External Device Data [facility] ABSTRACTION Provider, Abstract 12/15/2024 External Device Data [facility] ABSTRACTION Provider, Abstract 12/08/2024 External Device Data [facility] ABSTRACTION Provider, Abstract 12/01/2024 External Device Data [facility] ABSTRACTION Provider, Abstract 11/05/2024 Telephone [facility] [id number] [place] [address] [address] Kushal Jansen MD Needs Appointment 10/21/2024 Telephone [facility] [address] [place] [address] [phone] Kushal Jansen MD Needs Appointment from Last 3 Months Family History Medical History Relation Name Comments Diabetes Brother Cancer Father Diabetes Mother Relation Name Status Comments Brother Father Mother Social History Tobacco Use Types Packs/Day Years Used Date Smoking Tobacco: Every Day Cigarettes 0.5 30.7 Started: 04/28/1994 Smokeless Tobacco: Never Tobacco Cessation:Ready to Q uit: No; Counseling Given: No Alcohol Use Standard Drinks/Week Comments Not Currently 0 (1 standard drink = 0.6 oz pur e alcohol) Feeling Safe Answer Date Recorded Are you in a relationship wi th someone who hurts you emotionally and/or physically? No 07/21/2024 Comments Unknown Sex and Gender Information Value Date Recorded Sex Assigned at Not on file Legal Sex Female 12:54 PM CDT Gender Identity Not on file Sexual Orientation Not on file Last Filed Vital Signs Vital Sign Reading Time Taken Comments Blood Pressure 160/61 07/21/2024 9:00 AM CDT Pulse 70 07/21/2024 9:00 AM CDT Temperature 36.2 C (97.2 F) 07/21/2024 9:00 AM CDT Respiratory Rate 20 07/21/2024 9:00 AM CDT Oxygen Saturation - - Inhaled Oxygen Concentration - - Weight 62.6 kg (138 lb) 07/21/2024 9:00 AM CDT Height 170.2 cm (5' 7 ) 07/21/2024 9:00 AM CDT Body Mass Index 21.61 07/21/2024 9:00 AM CDT Plan of Treatment Health Maintenance Due Date Last Done Comments PNEUMOCOCCAL VACCINE 0-64 YEARS (1 of 2 - PCV) 966 DTAP/TDAP/TD VACCINES (1 - Tdap) 1979 CERVICAL CANCER SCREENING 1990 BREAST CANCER SCREENING 2000 COLORECTAL SCREENING 2005 Colorectal Cancer Screening 2005 FIT-DNA Q 3 years 2005 FIT/FOBT Q 1 year 2005 Flex Sig/CT Colonography Q 5 years 2005 ZOSTER VACCINE (1 of 2) 2010 INFLUENZA VACCINE (#1) 2024 08/25/2015 RSV VACCINE (60+ or ) (1 - 1-dose 75+ series) 2035 Insurance [employer] Medicare Part D
== END 2025-01-05 12:57 | disposition home or self-care (01) ==
LOC: CHSIMG 12:59
PROVIDERS: PCP Internal Medicine; Visit Provider Internal Medicine
DX: Z12.31 Encounter for screening mammogram for malignant neoplasm of breast (principal); Z17.0 Estrogen receptor positive status [ER+]; Z12.2 Encounter for screening for malignant neoplasm of respiratory organs; M85.88 Other specified disorders of bone density and structure, other site; M81.0 Age-related osteoporosis without current pathological fracture; Z87.891 Personal history of nicotine dependence
CPT/HCPCS: 71271; 77063; 77067; 77080

== ENCOUNTER 2025-02-09 00:27 | Day surgery (SDC) | payer MEDICARE, MEDICAID, SELFPAY ==
[2024-12-07 10:53] VITALS: BMI 21.9
[2025-01-28 13:00] VITALS: BMI 23.8
--- OUTSIDE RECORDS SUMMARY | 2025-02-09 00:42 | XMS_ITS | Data Portability ---
Author Organization [facility], Main Office Address [address] [place] [address] Care Team Providers Care Plumbing Designer Name Role Phone JESÚS MCMILLAN Primary Care Provider [facility] - [facility]STR[facility] Gastro enterologist Assessment No assessment recorded. Plan of Treatment Reminders Order Date Submit Date Provider Last Modified By Organization Details Last Modified Time Details Appointments New Patient 15 2024 01:05P Irish Lee MD Not available Not available Not available Establish ed Patient 15 2024 11:30A Irish Mcmillan MD Not available Not available Not available Lab vitamin D, 25-hydrox y, total, serum [address] (Lab), [address] [place], [address], 09/16/2024 08:00:32 lipid panel, serum [address] (Lab), [address] [place], [address], 09/16/2024 08:00:32 CMP, serum or plasma 2023 [facility] (Lab), [address] [place], [address], 09/09/2024 15:57:10 TSH, serum or plasma [address] (Lab), [address] [place], [address], 09/16/2024 08:00:31 T4, free, serum 2023 [email or web address] [facility] (Lab), [address] [place], [address], 09/16/2024 08:00:32 T3, free, serum or plasma 2023 [facility] (Lab), [address] [place], [address], 09/11/2024 15:36:24 Referral None recorded. Procedures upper endoscopy procedure (EGD) (PROC) [address] [facility], [address], [address], [address], 10/05/2024 15:14:34 upper endoscopy procedure (EGD) (PROC) [email or web address] [place] [address] Gastroenterol og, [address], [facility], [place], [address], 01/28/2025 10:38:44 colonosco py procedure (PROC) - Please call patient to schedule. [address] Gastroenterol ogy, [address], [facility], [place], [address], 01/28/2025 09:51:31 Surgeries None recorded. Imaging MAMMO, screening , digital, bilateral - Please call patient to schedule. [address], [address], [place], [address], 10/06/2024 10:04:24 LDCT, chest, for lung cancer screening - Please call patient to schedule. [address], [address], [place], [address], 10/06/2024 10:04:20 bone density - Please call patient to schedule. 2023 [email or web address] [facility], [address], [place], [address], 10/06/2024 10:03:47 Medication Orders meloxicam 15 mg tablet 2023 [facility]armacy #[id number], [address], [place], [address], 10/05/2024 12:30:35 Patient TargetsNo targets recorded. Patient InstructionsNo instructions recorded. Reason for Referral None Reported. Results Created Date Observation Date Name Description Value Unit Range Abnormal Flag Note LastModifiedBy Organization Detail LastModifiedTime 01/05/2001/05/2025 MAMMO , oleg prieto, digit al, bilat eral No observ ation record ed. [email or web address] [id number] Not Available 14:25:25 01/06/20 25 01/05/2025 LDCT, chest , for lung cance r oleg prieto No observ ation record ed. [address] [facility] [address] [place], [address], 01/06/2025 14:25:50 01/11/20 25 01/05/2025 bone densi ty No observ ation record ed. [address]) [address], [place], [address], 01/20/2025 14:32:26 Result Notes None recorded. Problems Name Problem SNOMED Code Status Onset Date Resolution Date Notes Provider Name and Address Organization Details Recorded Time Hypothyroid ism 20366222 Active 2023 ARTHUR [employer] 4 12:13:26 Hyperlipide sean 50976631 Active 2023 ARTHUR Gore, RICK Chung [employer] 4 12:13:23 Osteoporosi s 63058678 Active 2023 Stephanie Stufflebe an, RMA null, [place] [facility] [place] [facility] 4 12:13:35 Polyp of colon 22262243 Active 2023 Stephanie Stsarahbe an, RMA null, [place] [facility] 4 12:14:17 Gastroesoph ageal reflux disease 579109811 Active 2023 Stephanie Stsarahbe an, RMA null, [place] [facility] [place] [facility] 4 12:13:29 Venous stasis ulcer with edema of right lower leg 8954820155999 9106 Active 2023 Stephanie Stufflebe an, RMA null, [place] [facility] [place] [facility] 4 12:14:23 Venous stasis ulcer with edema of left lower leg 1082791272844 9101 Active 2023 Stephanie Stsarahbe an, RMA null, [place] [facility] [place] [facility] 4 12:14:20 Osteoarthri tis 610624080 Active 2023 Stephanie Stufflebe an, RMA null, [place] [facility] [place] [facility] 4 12:13:28 Edema of lower extremity 803724400 Active 2023 Stephanie Stmisaellebe an, RMA null, [place] [facility] 4 12:14:08 Smoker 67562124 Active 2023 Stephanie Stsarahbe an, RMA null, [place] [facility] [place] [facility] 4 12:13:41 Dysphagia 13447044 Active 2023 Stephanie Stufflebe an, RMA null, [place] [facility] 4 12:13:21 Peripheral vascular disease 057001727 Active 2023 Stephanie Stufflebe an, RMA null, [place] [facility] 4 12:13:39 Anxiety 12604163 Active 2023 Stephanie Stufflebe an, RMA null, [place] [facility] [place] [facility] 4 12:13:18 Hyperglycem ia 03428169 Active 2023 Jesús Mcmillan MD [address], [place], [address], [facility] [place] [facility] 4 08:41:42 Blood glucose outside reference range 078323534 Active 2023 ARTHUR Gore null, [facility] [place] [facility] 4 12:14:11 Multiple joint pain 84891633 Active 2023 Jesús Mcmillan MD [address], [address], [place], [address], [facility] [place] [facility] 4 12:29:37 Pain of left shoulder joint 8285442755189 9109 Active 2024 Marlen Robbins LPN null, [facility] 5 12:08:33 Problem Notes None recorded. Procedures Surgical History Date Name Laterality Status Provider Name and Address Organization Details Recorded Time section completed Stephanie Arroyo [facility] 09/02/2024 12:06:13 Partial hysterectomy completed Stephanie Arroyo [facility] [place] [facility] 09/02/2024 12:07:05 Orthopedic Surgery completed Stephanie Arroyo [facility] 09/02/2024 12:07:26 Carpal tunnel surgery completed Stephanie Arroyo [facility] [employer] [facility] 09/02/2024 12:07:44 thyroidectomy completed Stephanie Arroyo [facility] 09/02/2024 12:07:54 miscarriage care management completed Stephanie Arroyo [facility] [place] [facility] 09/02/2024 12:08:41 Cardiac Stent Placement completed Stephanie Arroyo [facility] 09/02/2024 12:09:03 Imaging Results Imaging Date Name Status LastModified by [facility] [place] [facility] Details LastModified Time 01/05/2025 MAMMO, screening, digital, bilateral completed [email or web address] Information not available 01/06/2025 14:25:25 01/05/2025 LDCT, chest, for lung cancer screening completed [address] Rad[facility] [address] [place], [address], 01/06/2025 14:25:50 01/05/2025 bone density completed [address]) [address] [place], [address], 01/20/2025 14:32:26 Procedure Notes None recorded. Medical Equipment None [...] oral route as needed. 2023 active CHRISTIANE 10/05SEP 27 ok to rf Not Available Not Available Not Available Vitals Date Recorded Body weight Body mass index (BMI) Body height Body temperature Heart rate Oxygen saturation Oxygen saturation in Arterial blood by Pulse oximetry Systolic blood pressure Diastolic blood pressure Provider Name and Address Organization Details Last Updated DateTime 4 02380.2 6 g 23.3 kg/m2 170.18 cm 97.3 [degF] 65 /min 98 % 98 % 130 mm[Hg] 74 mm[Hg] Stephanie JungsarahARTHUR [employer] 4 11:59:18 Date Recorded Body height Body mass index (BMI) Body weight Body temperature Heart rate Oxygen saturation Oxygen saturation in Arterial blood by Pulse oximetry Systolic blood pressure Diastolic blood pressure Provider Name and Address Organization Details Last Updated DateTime 4 170.18 cm 23.6 kg/m2 94906.4 5 g 97.3 [degF] 72 /min 99 % 99 % 134 mm[Hg] 70 mm[Hg] Stephanie Wil ARTHUR [employer] 4 12:11:15 Social History Question Answer Notes LastModified by Organizat ion Details LastModified Time Tobacco Smoking Status Current Every Day Smoker Stephanie Cruz ARTHUR [employer] 09/02/2024 12:04:07 Do You Have An Advance [...] Or The Highest Degree You Have Received? [id number] Information not available 09/02/2024 Have There Been Any Changes To Your Family Or Social Situation? No Information not available 09/02/2024 Do You Use Insect Repellent Routinely? Yes Information not available 09/02/2024 Where Do You Live? Other [place] Information not available 09/02/2024 What Was The [...] Anxious, Or Unable To Sleep At Night)? [id number] Information not available 09/02/2024 Do You Use Any Illicit Or Recreational Drugs? Yes TCH- GUMMIES In The AM For Her Arthritis Information [...] SNOMED-CT Code Diagnosis ICD10 Code Diagnosis Note [id number] Jesús Mcmillan MD [facility] [address] [facility] [place] [address] 09/02/2024 11:51:25 09/02/2024 12:53:48 Adult health examination 511305364 Z00.00 Colonoscop y- 5 yrs ago- had 13 polyps 4 yrs ago had 3 polyps, dueMammogr am- 2DEXA- NEVERPneum ovax- NEVERFLU- NEVERCOVID - DOES NOT WANT Hypothyroidism 71690597 E03.9 Hyperlipidemia 90636960 E78.5 Gastroesop hageal reflux disease 928768044 K21.9 MEDS HELP Osteoporosis 04504247 M8 1.0 needs dexa, to take caltrate Polyp of colon 57930794 K63.5 Venous sta sis ulcer with edema of left lower leg 4194425189 2381010 L97.929 Smoker 37767784 F17.200 advise dto quit Osteoarthritis 720062928 M19.90 meds help Edema of l ower extremity 577808596 R60.0 on meds and better Long-term drug therapy 584647782 Z79.891 Screening mammography 24 395266 Z12.31 Postmenopausal state 764 97457 Z78.0 Dysphagia 41357314 R13.1 0 Peripheral vascular disease 337999185 I73.9 no symptoms Anxiety 98632925 F41.9 meds help [id number] Jesús Mcmillan MD [facility] [address] [place] [address] 10/05/2024 11:56:48 10/05/2024 12:34:36 Adult health examination 034007809 Z00.00 Colonoscop y- 5 yrs ago- had 13 polyps 4 yrs ago had 3 polyps, dueMammogr am- 2DEXA- NEVERPneum ovax- NEVERFLU- NEVERCOVID - DOES NOT WANT Hypothyroidism 06133714 E03.9 stable Hyperlipidemia 54355240 E78.5 stable Gastroesop hageal reflux disease 141460555 K21.9 MEDS HELP Osteoporosis 89958175 M8 1.0 needs dexa, to take caltratede xa orrdered Venous sta sis ulcer with edema of left lower leg 1715171117 8680082 L97.929 Smoker 72794344 F17.200 advised to quit, LDCT was ordered Osteoarthritis 697014242 M19.90 meds help Edema of l ower extremity 088889878 R60.0 on meds and better Dysphagia 79331514 R13.1 0 Peripheral vascular disease 576299855 I73.9 no symptoms Anxiety 64143630 F41.9 meds help Health Concerns Section Related Observation LastModified by Organization Detai ls LastModified Time None Recorded Concern Status LastModified by Organization Details LastModified Time None Recorded Advance Directives Directive N: Payers Encounter Date Sequence Insurance Name Policy Number Policy Jett Covered Member ID Jett Member ID Guarantor Name 09/02/2024 1 [facility] (MEDICARE REPLACEMENT/A DVANTAGE - PPO) [id number] Janette Montero [id number] Janette Montero 09/02/2024 2 [place] [facility] Janette Montero [id number] Janette Montero 10/05/2024 1 [facility] (MEDICARE REPLACEMENT/A DVANTAGE - PPO) [id number] Janette Montero [id number] Janette Montero 10/05/2024 2 [place] [facility] Janette Montero [id number] Janette Montero Notes Date Note Type Note [...] - Left leg. Has been [facility] [place]. Has almost healed PVD- s/p stents in left leg, on asa, symptoms better since got stents Anxiety- meds helpMeds- hydroxyzine 25 mg tid Jesús Mcmillan MD [address] [facility], [facility] [address], [place], [address], [place] [facility] 09/02/2024 14:27:35 10/05/2024 text/html Pt is here [...] - Left leg. Has been going to [facility] wound center. Has almost healed PVD- s/p stents in left leg, on asa, symptoms better since got stents Anxiety- meds helpMeds- hydroxyzine 25 mg tid Hyperglycemia- was 111, has staretd watching diet Jesús Mcmillan MD [address] [facility], [facility] [address], [place], [address], [place] [facility] [employer] [facility] [employer] 10/05/2024 12:32:59 OBGyn Episode No OBEpisode recorded.
--- OUTSIDE RECORDS SUMMARY | 2025-02-09 00:42 | XMS_ITS | Clinical Summary ---
Author Organization [facility] Address [address] [place] [address] Care Team Providers Care Unit Aid Name Role Phone Unavailable Primary Care Provider [...] Encounters Date Type Department Care Team Description 02/02/2025 External Device Data STL ABSTRACTION Provider, Abstract 02/02/2025 External Device Data [facility] ABSTRACTION Provider, Abstract 01/30/2025 External Device Data [facility] ABSTRACTION Provider, Abstract 01/29/2025 External Device Data ST[facility] ABSTRACTION Provider, Abstract 01/26/2025 External Device Data ST[facility] ABSTRACTION Provider, Abstract 01/12/2025 External Device Data STL ABSTRACTION Provider, Abstract 12/17/2024 External Device Data ST[facility] ABSTRACTION Provider, Abstract 12/16/2024 External Device Data STL ABSTRACTION Provider, Abstract 12/15/2024 External Device Data ST[facility] ABSTRACTION Provider, Abstract 12/08/2024 External Device Data STL ABSTRACTION Provider, Abstract 12/01/2024 External Device Data STL ABSTRACTION Provider, Abstract from Last 3 Months Family History Medical History Relation Name Comments Diabetes Brother Cancer Father Diabetes Mother Relation Name Status Comments Brother Father Mother Social History Tobacco Use Types Packs/Day Years Used Date Smoking Tobacco: Every Day Cigarettes 0.5 30.8 Started: 04/28/1994 Smokeless Tobacco: Never Tobacco Cessation:Ready [...] Health Maintenance Due Date Last Done Comments DTAP/TDAP/TD VACCINES (1 - Tdap) 1979 CERVICAL CANCER SCREENING 1990 BREAST CANCER SCREENING 2000 COLORECTAL SCREENING 2005 Colorectal Cancer Screening 2005 FIT-DNA Q 3 years 2005 FIT/FOBT Q 1 year 2005 Flex Sig/CT Colonography Q 5 years 2005 ZOSTER VACCINE (1 of 2) 2010 INFLUENZA VACCINE (#1) 2024 08/25/2015 RSV VACCINE (60+ or ) (1 - 1-dose 75+ series) 2035 Insurance RX [email or web address] Medicare Part D
--- NOTE | 2025-02-09 11:43 | P.PNAN_ITS ---
Anes - Initial Pre Proc Eval Procedure: Operation Date: 02/09/25 13:00 Proposed Procedures p Esophagogastroduodenoscopy & Colonoscopy - Mason Guzman MD Date/Time: 02/09/25 11:43 Surgeon: Mason Guzman MD Pre Op Diagnosis: Dysphasia/ Hx colon polyps Patient Data Age: 64 Gender: F Height: 1.7 m Weight: 69.1 kg Allergies Allergy/AdvReac Type Severity Reaction Status Date / Time No Known Allergies Allergy Verified 02/09/25 11:42 Home Medications ?Medication ?Instructions ?Recorded ?Confirmed ?Type ascorbic acid (vitamin C) 500 mg 500 mg PO DAILY 01/12/20 12/07/24 History capsule aspirin 81 mg tablet,delayed 81 mg PO DAILY 01/12/20 12/07/24 History release (Aspir-) atorvastatin 10 mg tablet 10 mg PO DAILY 01/12/20 12/07/24 History ergocalciferol (vitamin D2) 62.5 2,500 unit PO .COMPLEX 01/12/20 12/07/24 History mcg (2,500 unit) capsule escitalopram oxalate 10 mg tablet 10 mg PO DAILY 01/12/20 12/07/24 History multivitamin with iron-mineral 1 tablet PO DAILY 01/12/20 12/07/24 History ranitidine HCl 300 mg tablet 300 mg PO DAILY 01/12/20 01/28/25 History spironolactone 25 1 tablet PO DAILY #60 tabs 01/12/20 12/07/24 Rx mg-hydrochlorothiazide 25 mg tablet levothyroxine 112 mcg tablet 100 mcg PO DAILY 05/25/20 12/07/24 History omeprazole 40 mg capsule,delayed See Rx Instructions .Route 07/20/21 12/07/24 Rx release .COMPLEX #90 caps cyclobenzaprine 5 mg tablet 5 mg PO BID PRN muscle spasm #10 10/17/22 12/07/24 Rx tabs diclofenac sodium 50 mg 50 mg PO Q12H PRN pain #20 tabs 10/17/22 12/07/24 Rx tablet,delayed release alendronate 10 mg tablet 70 mg PO DAILY 12/07/24 12/07/24 History hydroxyzine HCl 25 mg tablet 25 mg PO TID 12/07/24 12/07/24 History meloxicam 15 mg tablet 15 mg PO DAILY 12/07/24 12/07/24 History Patient hx anesthesia problems: none Family hx anesthesia problems: none Results Review: All pre-operative results and documents have been reviewed as part of the pre- operative evaluation. [facility] Past Medical History Medical History Leg ulcer, left Prolonged QT interval Peripheral artery disease Constipation Adenomatous colon polyp Weight loss Dysphagia High cholesterol Arthritis Hypertension Thyroid disease Surgical History Surgical History S/P peripheral artery angioplasty with stent placement left iliac times due History of Family History Family History Father Cancer Mother Diabetes mellitus Sibling Diabetes mellitus Social History Social History Years smoked: 35 Smoking status: Current every day smoker Tobacco type: cigarettes Alcohol intake: never Substance use: never Substance use type: does not use Other substance usage details: gummies (10mg) for sleeping and arthritis Living arrangements: alone Spiritual care concerns: No Anes - Eval Final PreProcedure Day of Procedure 02/09/25 11:43 Patient weight: normal Heart: regular rate and rhythm Lungs: decreased breath sounds Airway: Mallampati scale class II Neurological: alert and oriented Last oral intake: >/= 8 hours ASA classification: III Emergent: no Anesthetic plan: proceed Anesthesia type and monitoring: general GIVS and standard monitoring Results Review: All pre-operative results and documents have been reviewed as part of the pre- operative evaluation. Informed Consent: The patient's anesthetic plan and its attendant risks and benefits were discussed with the patient/family/POA. Questions were solicited and answers provided to the satisfaction of the patient/family/POA.
[2025-02-09 11:44] VITALS: BP 159/85; PULSE 68; RESP 20; TEMP 36.2; O2SAT 100
[2025-02-09] MEDS: LACTATED RINGERS 1,000 ML 150 ML IV CONT (11:52)
--- NOTE | 2025-02-09 12:01 | PM.HPGS ---
History of Present Illness History of Present Illness Consent: Risks, benefits, and alternatives have been discussed and questions answered. Patient agrees to proceed with procedure. Chief complaint: abdominal pain/ Hx colon polyps Narrative: Janette Montero is a 64 year old female with intermittent abdominal pain and colon polyp Review of Systems Review of Systems: All systems reviewed & are unremarkable except as noted in HPI and below PMFSH Past Medical History Medical History (Updated 02/09/25 @ 12:03 by Mason Guzman MD) Abdominal pain Leg ulcer, left Prolonged QT interval Peripheral artery disease Constipation Adenomatous colon polyp Weight loss Dysphagia High cholesterol Arthritis Hypertension Thyroid disease Surgical History Surgical History S/P peripheral artery angioplasty with stent placement left iliac times due History of Family History Family History Father Cancer Mother Diabetes mellitus Sibling Diabetes mellitus Social History Social History Years smoked: 35 Smoking status: Current every day smoker Tobacco type: cigarettes Alcohol intake: never Substance use: never Substance use type: does not use Other substance usage details: gummies (10mg) for sleeping and arthritis Living arrangements: alone Spiritual care concerns: No Meds Home Medications and Allergies Home Medications ?Medication ?Instructions ?Recorded ?Confirmed ?Type ascorbic acid (vitamin C) 500 mg 500 mg PO DAILY 01/12/20 02/09/25 History capsule aspirin 81 mg tablet,delayed 81 mg PO DAILY 01/12/20 02/09/25 History release (Aspir-) atorvastatin 10 mg tablet 10 mg PO DAILY 01/12/20 02/09/25 History ergocalciferol (vitamin D2) 62.5 2,500 unit PO .COMPLEX 01/12/20 02/09/25 History mcg (2,500 unit) capsule escitalopram oxalate 10 mg tablet 10 mg PO DAILY 01/12/20 02/09/25 History multivitamin with iron-mineral 1 tablet PO DAILY 01/12/20 02/09/25 History ranitidine HCl 300 mg tablet 300 mg PO DAILY 01/12/20 01/28/25 History spironolactone 25 1 tablet PO DAILY #60 tabs 01/12/20 02/09/25 Rx mg-hydrochlorothiazide 25 mg tablet levothyroxine 112 mcg tablet 100 mcg PO DAILY 05/25/20 02/09/25 History omeprazole 40 mg capsule,delayed See Rx Instructions .Route 07/20/21 02/09/25 Rx release .COMPLEX #90 caps cyclobenzaprine 5 mg tablet 5 mg PO BID PRN muscle spasm #10 10/17/22 02/09/25 Rx tabs diclofenac sodium 50 mg 50 mg PO Q12H PRN pain #20 tabs 10/17/22 02/09/25 Rx tablet,delayed release alendronate 10 mg tablet 70 mg PO DAILY 12/07/24 02/09/25 History hydroxyzine HCl 25 mg tablet 25 mg PO TID 12/07/24 12/07/24 History meloxicam 15 mg tablet 15 mg PO DAILY 12/07/24 02/09/25 History Allergies Allergy/AdvReac Type Severity Reaction Status Date / Time No Known Allergies Allergy Verified 02/09/25 11:42 Vital Signs Vital Signs - 24 hr 02/09/25 11:44 Temperature 97.1 F L Pulse Rate 68 Respiratory Rate 20 Blood Pressure 159/85 H Pulse Oximetry 100 Oxygen Delivery Room Air Exam Const: General: comfortable and no acute distress HENMT: Face/Nose/Sinus: Normal nares present Eyes: General: appearance normal, both eyes and all related structures Neck: Neck: no JVD Resp: Auscultation: clear to auscultation bilaterally Cardio: Rate: regular rate Rhythm: regular rhythm GI: Inspection: non-distended GI Palp: Yes Soft to palpation Skin: General skin exam: normal color Neuro: Speech: normal speech Extrem: General: normal to inspection Psych: Mental Status: mental status grossly normal Assessment and Plan Assessment and plan (1) Adenomatous colon polyp: Qualifiers: Colon location: unspecified part of colon Qualified Code(s): D12.6 - Benign neoplasm of colon, unspecified Code(s): D12.6 - Benign neoplasm of colon, unspecified Status: Acute Assessment and Plan: colonoscopy (2) Abdominal pain: Code(s): R10.9 - Unspecified abdominal pain Status: Acute Assessment and Plan: egd
[2025-02-09 12:30] VITALS: BP 132/70; PULSE 76; RESP 28; O2SAT 100
--- NOTE | 2025-02-09 12:30 | SUR.OPER ---
EGD START 1205, END 1209 COLONOSCOPY START 1212, END 1228
[2025-02-09 12:40] VITALS: BP 152/81; PULSE 74; RESP 22; O2SAT 99
[2025-02-09 12:50] VITALS: BP 156/77; PULSE 73; RESP 15; O2SAT 98
== END 2025-02-09 13:05 | disposition home or self-care (01) ==
PROVIDERS: PCP Internal Medicine; Visit Provider Internal Medicine Gastroenterology
PROC: 0DJ08ZZ Inspection of Upper Intestinal Tract, Via Natural or Artificial Opening Endoscopic (ICD-10-PCS; CPT 45378; principal; 2025-02-09 13:00)
DX: Z12.11 Encounter for screening for malignant neoplasm of colon (principal); D12.3 Benign neoplasm of transverse colon; D12.4 Benign neoplasm of descending colon; R10.13 Epigastric pain; F17.210 Nicotine dependence, cigarettes, uncomplicated
CPT/HCPCS: 45385; 43239; 88305; J2704; J7120